=== PATIENT | male | born 1950 | race Caucasian/White ===

== ENCOUNTER 2018-11-10 06:15 | Day surgery (SDC) | payer OTHER ==
[~2018-11-10] VITALS: Ht 172.7 cm; Wt 86.7 kg
[~2018-11-10 06:15] MED LIST: ALPHA LIPOIC A600 MG PO; Advil200 M1; Advil200 M1 PO; ENOX40I SC; GABA300 PO; LISI5 PO; LOSA25 PO; METF500 PO; OMEP20ER PO; OXYACE5T PO; Omeprazole20 M1 PO; ROXICODONE5 MG PO; SIMV10 PO; Zocor20 MG PO
[2018-11-10] MEDS ORDERED: METF500 PO (06:46)
== END 2018-11-10 08:14 | disposition home or self-care (01) ==
LOC: ORSCSDS 06:15
PROVIDERS: Ophthalmology
PROC: 08RK3JZ Replacement of Left Lens with Synthetic Substitute, Percutaneous Approach (ICD-10-PCS; principal; 2018-11-10 07:30)
DX: H25.12 Age-related nuclear cataract, left eye (principal); I10 Essential (primary) hypertension; K21.9 Gastro-esophageal reflux disease without esophagitis; E11.9 Type 2 diabetes mellitus without complications; Z79.84 Long term (current) use of oral hypoglycemic drugs; Z79.899 Other long term (current) drug therapy
CPT/HCPCS: 82947; J2001; J2250; J3010; J3301; J7120; V2632

== ENCOUNTER 2020-01-25 12:57 | Day surgery (SDC) | payer OTHER ==
[~2020-01-25] VITALS: Ht 172.7 cm; Wt 80.4 kg
== END 2020-01-25 15:10 | disposition home or self-care (01) ==
LOC: ORSCSDS 12:57
PROVIDERS: Internal Medicine Gastroenterology
PROC: 0DJD8ZZ Inspection of Lower Intestinal Tract, Via Natural or Artificial Opening Endoscopic (ICD-10-PCS; principal; 2020-01-25 14:00)
DX: Z12.11 Encounter for screening for malignant neoplasm of colon (principal); K57.30 Diverticulosis of large intestine without perforation or abscess without bleeding; Z86.010 Personal history of colon polyps; G47.33 Obstructive sleep apnea (adult) (pediatric); E11.9 Type 2 diabetes mellitus without complications; I10 Essential (primary) hypertension; Z79.84 Long term (current) use of oral hypoglycemic drugs; Z79.899 Other long term (current) drug therapy
CPT/HCPCS: 82947; J2405; J2704; J7120

== ENCOUNTER 2021-11-18 08:52 | Day surgery (SDC) | payer MEDICARE ==
[~2021-11-18] VITALS: Ht 172.7 cm; Wt 86.3 kg
[2021-11-18] MEDS ORDERED: GABA300 (09:16)
[2021-11-18] MEDS ORDERED: TADA10TA (09:16)
--- NOTE | 2021-11-18 11:24 | NUR ---
11/18/21 1124 RENAN HAWKINS 0.05MG OF EPI (1MG/1ML) ADDED TO 10MLS OF ROPIVACAINE 0.5% TO CREATE A LOCAL SOLUTION OF ROPIVACAINE 0.5% WITH EPI 1:200,000. LOCAL POURED ONTO STERILE FIELD FOR USE DURING CASE. 1MG OF EPI ADDED TO 3000ML BAG OF LR FOR IRRIGATION.
== END 2021-11-18 10:32 | disposition home or self-care (01) ==
LOC: ORSCSDS 08:52
PROVIDERS: Orthopaedic Surgery
PROC: 0SBD4ZZ Excision of Left Knee Joint, Percutaneous Endoscopic Approach (ICD-10-PCS; principal; 2021-11-18 10:15)
DX: S83.242A Other tear of medial meniscus, current injury, left knee, initial encounter (principal); I10 Essential (primary) hypertension; G47.33 Obstructive sleep apnea (adult) (pediatric); K21.9 Gastro-esophageal reflux disease without esophagitis; E11.9 Type 2 diabetes mellitus without complications; Z79.84 Long term (current) use of oral hypoglycemic drugs; Z79.899 Other long term (current) drug therapy
CPT/HCPCS: 82947; J0171; J0690; J1100; J1885; J2405; J2704; J2795; J3010; J7120

== ENCOUNTER → 2024-10-11 | Outpatient (CLI) | payer OTHER ==
[~2024-10-11] MED LIST changes: +GABA300; +TADA10TA
[2024-10-11 10:23] LABS: Source, Urine Clean Catch
[2024-10-11 11:40] LABS: Bilirubin, Urine Neg (Neg); Color, Urine Red (P-Yellow); Glucose Qualitative, Urine Neg (Neg); Ketones, Urine Neg (Neg); Leukocyte Esterase, Urine 3+ (Neg); Protein, Urine 4+ (Neg); Specific Gravity, Urine 1.015 (1.003-1.022); Urobilinogen, Urine NORM (Normal)
[2024-10-11 13:07] LABS: Red Blood Cells, Urine TNTC /hpf (0-2); White Blood Cells, Urine TNTC /hpf (0-5)
== END | disposition home or self-care (01) ==
LOC: LAB 10:22 → LAB SHORT 10:22
PROVIDERS: Internal Medicine
DX: R30.0 Dysuria (principal)
CPT/HCPCS: 81001; 87077; 87086; 87186